=== PATIENT | male | born 1975 | race Caucasian/White ===

== ENCOUNTER 2023-04-11 14:49 | Emergency (ER) | payer SELFPAY ==
[2023-04-11 15:03] VITALS: BP 141/87; PULSE 73; RESP 18; TEMP 98.6; BMI 24.0
[2023-04-11] MEDS ORDERED: FLUORESCEIN NA 1 EA STRIP ONE (15:59)
[2023-04-11] MEDS: FLUORESCEIN NA 1 EA STRIP OD ONE (15:59)
== END 2023-04-11 16:29 | disposition home or self-care (01) ==
LOC: JERFT 14:49
DX: S05.02XA Injury of conjunctiva and corneal abrasion without foreign body, left eye, initial encounter (principal); X58.XXXA Exposure to other specified factors, initial encounter
CPT/HCPCS: 99283-25